=== PATIENT | male | born 1965 | race Caucasian/White ===

== ENCOUNTER 2020-03-08 15:53 | Emergency (ER) | payer BC, SELFPAY ==
--- NOTE | 2020-03-08 16:56 | RAD ---
Right shoulder 3 views HISTORY: Injury. FINDINGS: Glenohumeral alignment is maintained. Distal clavicle is elevated approximately one half sh aft width in relation to the acromion. Acromioclavicular distance within normal limits. Coracoclavicular distance increased. No fracture fragments evident. IMPRESSION : Mild acromioclavicular disassociation. Age indeterminate. Correlate for acute AC separation.
[2020-03-08] MEDS ORDERED: HYDROcodone/Acetaminophen 5/325 mg Tablet ONE (18:01)
== END 2020-03-08 18:15 | disposition home or self-care (01) ==
LOC: MADERS 15:53
DX: S43.101A Unspecified dislocation of right acromioclavicular joint, initial encounter (principal); K21.9 Gastro-esophageal reflux disease without esophagitis; W18.30XA Fall on same level, unspecified, initial encounter; Y93.61 Activity, american tackle football